=== PATIENT | male | born 1980 | race Caucasian/White ===

== ENCOUNTER → 2021-08-15 08:14 | Outpatient (CLI) | payer BC, SELFPAY ==
--- NOTE | ~2021-08-15 | CT_ITS ---
EXAMINATION: CT diagnostic chest wo con DATE: 08/15/2021 08:39 INDICATION: Shortness of breath, disorders of the diaphragm, aortic arch syndrome TECHNIQUE: Computed tomography (CT) of the chest was performed without intravenous contrast. The dose -length product (DLP) was 330.42 mGy-cm. Automated exposure control and iterative reconstruction tech [employer] were employed. COMPARISON: None FINDINGS: The lungs are free of acute opacities. A few scattered pulmonary nodules measure up to 4 mm in the left lower lobe. There is a right-sided aortic arch. No pathologically enlarged thoracic lymp h nodes are identified. The heart size is normal. There is no dilatation of the thoracic aorta. No pl eural effusion or pneumothorax is identified. An azygos fissure is noted. There is mild thoracic spon dylosis. The diaphragm appears intact. IMPRESSION: 1. No CT correlate for the patient's symptoms. 2. Right-sided aortic arch. 3. Scattered pulmonary nodules measuring up to 4 mm, likely old granulomatous disease. Given history of tobacco use, consider follow-up CT in 12 months. Reviewed, dictated and finalized at location [facility]. IMPRESSION: 1. No CT correlate for the patient's symptoms. 2. Right-sided aortic arch. 3. Scattered pulmonary nodules measuring up to 4 mm, likely old granulomatous d isease. Given history of tobacco use, consider follow-up CT in 12 months.
== END ==
DX: J98.6 Disorders of diaphragm (principal); R06.00 Dyspnea, unspecified; M31.4 Aortic arch syndrome [Takayasu]; R91.8 Other nonspecific abnormal finding of lung field
CPT/HCPCS: 71250

== ENCOUNTER 2022-07-15 13:52 | Emergency (ER) | payer BC, SELFPAY ==
--- NOTE | ~2022-07-15 | XR_ITS ---
XR chest 1V DATE: 07/15/2022 15:51 INDICATION: Syncopal episode. Fall. TECHNIQUE: PA and lateral views COMPARISON: 08/15/2021 CT chest FINDINGS: Right-sided aortic arch. Azygos lobe. Normal heart size. No hilar or mediastinal enlargemen t. No pulmonary infiltrate or consolidation, pleural effusion or pulmonary vascular congestion or pneumo thorax. Included skeletal structures are unremarkable. IMPRESSION: Right-sided aortic arch Azygos lobe No active cardiopulmonary disease Reviewed, dictated and finalized at location A.
--- NOTE | ~2022-07-15 | CT_ITS ---
EXAMINATION: CT brain wo con DATE: 07/15/2022 15:49 INDICATION: Syncopal episode. Small bump on posterior aspect of head. Neck tenderness. TECHNIQUE: Computed tomography (CT) of the head was performed without intravenous contrast. The mA wa s adjusted according to patient size. Iterative reconstruction technique was employed. Exam dose: 60 5.33 mGy-cm total exam DLP. COMPARISON: None FINDINGS: No intracranial mass lesion or hemorrhage or cerebrovascular accident. No midline shift or mass effect effect. Normal ventricular size. Normal johnson-white matter differentiation. No subdural or epidural hematoma is detected. Paranasal sinuses and mastoid air cells and included in the examination are normally developed and ae rated. No fracture or bone destruction of the cranial vault. IMPRESSION: Negative Reviewed, dictated and finalized at [facility]. Reviewed, dictated and finalized at location A. IMPRESSION: Negative
--- NOTE | ~2022-07-15 | CT_ITS ---
EXAMINATION: CT cervical spine wo con DATE: 07/15/2022 15:49 INDICATION: Syncopal episode. Fall today. Neck tenderness. TECHNIQUE: Computed tomography (CT) of the cervical spine was performed without intravenous contrast. Automated exposure control and iterative reconstruction technique were employed. Exam dose: 397.52 mGy-cm total exam DLP. COMPARISON: None FINDINGS: There is straightening of the cervical spine which may be due to muscle spasm. C1 and C2 are normally aligned and the odontoid process is intact. No fracture or dislocation or lock ed facet or prevertebral soft tissue swelling. No fracture or dislocation or locked facet or prevertebral soft tissue swelling. There is mild anterior spurring at C3-4 and C5-6. There is uncovertebral joint spurring on the left a t C5-6 and bilaterally at C6-7.. IMPRESSION: Straightening and is in the spine; no fracture or dislocation Mild cervical spondylosis Reviewed, dictated and finalized at [facility]. Reviewed, dictated and finalized at location A.
[2022-07-15 13:53] VITALS: BP 135/95; PULSE 81; RESP 16; TEMP 36.4; O2SAT 100
--- NOTE | 2022-07-15 14:02 | ECG_ITS ---
Measurements Intervals [place] Rate: 79 P: 65 RI: 168 QRS: 51 QRSD: 101 T: 31 QT: 336 QTc: 386 Interpretive Statements SINUS RHYTHM INCOMPLETE RIGHT BUNDLE BRANCH BLOCK BORDERLINE ECG NO PREVIOUS ECG AVAILABLE FOR COMPARISON Electronically Signed On 07-15-2022 15:58:05 CDT by Corby Yun D.O.
[2022-07-15 14:16] LABS: Basophils Absolute Auto 0.1 K/mm3 (0.0-0.1); Basophils Percent Auto 0.4 % (0.2-1.2); Eosinophils Absolute Auto 0.2 K/mm3 (0-0.3); Eosinophils Percent Auto 1.4 % (0-4.4); Hematocrit 43.9 % (42.0-52.0); Hemoglobin 14.2 g/dL (14.0-18.0); Immature Granulocyte Absolute 0.05 K/mm3 (0.00-0.031); Immature Granulocyte Percent A 0.4 % (0-0.5); Lymphocytes Absolute Auto 1.66 K/mm3 (0.9-3.2); Lymphocytes Percent Auto 12.1 % (18.3-44.2); Mean Corpuscular HGB Conc 32.3 g/dl (32-36); Mean Corpuscular Hemoglobin 28.7 pg (26-34); Mean Corpuscular Volume 88.9 fl (80-100); Mean Platelet Volume 8.8 fl (7.4-10.4); Monocytes Absolute Auto 0.8 K/mm3 (0.1-0.6); Monocytes Percent Auto 5.6 % (2.6-8.5); Neutrophils Percent Auto 80.1 % (45.5-73.1); Platelet Count Result 327 k/mm3 (150-375); Red Blood Count 4.94 M/mm3 (4.6-6.20); Red Cell Distribution Width 12.8 % (11.5-14.5); White Blood Count 13.7 K/mm3 (4.5-10.0)
[2022-07-15 14:25] LABS: Alanine Aminotransferase 24 U/L (6-50); Albumin Level 4.5 g/dL (3.5-5.1); Alkaline Phosphatase 51 U/L (38-126); Anion Gap 8 mmol/L (8-16); Aspartate Amino Transferase 27 U/L (17-59); Bilirubin,Total 0.7 mg/dL (0.2-1.3); Blood Urea Nitrogen 18 mg/dL (9-20); Calcium 8.8 mg/dL (8.4-10.2); Carbon Dioxide 27 mmol/L (22-30); Chloride 104 mmol/L (98-107); Estimated CRCL calculation 87 ml/min; Estimated Glomerular Filt Rate > 60; Glucose 76 mg/dL (65-110); Sodium 139 mmol/L (137-145)
[2022-07-15 16:03] VITALS: PULSE 72; RESP 17; O2SAT 92
[2022-07-15 16:04] VITALS: BP 133/93; PULSE 60; RESP 14; O2SAT 99
[2022-07-15 16:12] VITALS: O2SAT 100
--- NOTE | 2022-07-15 16:49 | ED.SYNCOPE ---
HPI - Syncope General Chief Complaint: Syncope Stated Complaint: syncopal event, struck head Time Seen by Provider: 07/15/22 16:15 History of Present Illness HPI narrative: This is a 41-year-old male with no known significant past medical history, recently seen by a carriage rider for family history of coronary artery disease, who presents to the emergency department after falling. The patient states he has been on his feet throughout the day, looked up and fell backwards to the ground, striking his head. He denies loss of consciousness. He denies chest pain, palpitations, shortness of breath or lightheadedness prior to or after the fall. He states he was able to walk afterwards without difficulty Related Data Allergies Allergy/AdvReac Type Severity Reaction Status Date / Time No Known Allergies Allergy Mild Verified 07/15/22 14:00 Review of Systems Review of Systems: CONSTITUTIONAL: Denies fever, chills, or sweats. CARDIOVASCULAR: Denies chest pain, palpitations, or edema. RESPIRATORY: Denies cough or dyspnea. GASTROINTESTINAL: Denies abdominal pain, nausea, vomiting, or diarrhea. GENITOURINARY: Denies dysuria or hematuria. SKIN: Denies rash or itching. MUSCULOSKELETAL: Denies back pain, joint pain, or myalgia. NEUROLOGIC: Denies headache, numbness, dizziness, or weakness. PSYCHIATRIC: Denies anxiety or depression. [facility] Social History Social History (Updated 07/15/22 @ 16:50 by Tom Knight MD) Smoking status: Never smoker Alcohol intake: current Substance use: never Exam Narrative: GENERAL: Well-appearing, well-nourished, and in no acute distress. HEAD: Normocephalic, atraumatic. EYES: PERRLA and EOMI. ENT: Nares clear, no rhinorrhea or epistaxis. Mucous membranes moist. Oropharynx without tonsillar hypertrophy exudate or other lesions. NECK: Supple. No adenopathy or masses. No carotid bruits or JVD. No midline spine tenderness to palpation, no step-off or crepitus CHEST: Clear to auscultation. No respiratory distress. No wheezes rales or rhonchi HEART: Regular rate and rhythm. No murmur heard. Normal peripheral pulses. ABDOMEN: Soft, nontender, nondistended, normal active bowel sounds. BACK: No midline spine tenderness to palpation, no step-off or crepitus EXTREMITIES: Normal range of motion. No edema. SKIN: Warm, dry, no rash. NEURO: No focal deficits. Alert and oriented x3. Strength 5/5 in all extremities, sensation intact bilaterally, cranial nerves II through XII intact. No noted ataxia. PSYCH: Normal mood and affect. Course Course Emergency Course: 16:45 - Chemistries unremarkable. CBC demonstrates slightly elevated white blood cell count of 13.7. In the absence of infectious symptoms I suspect this is a stress reaction. CT head negative for skull fracture or intracranial hemorrhage. CT cervical spine negative for fracture or dislocation. The patient c-collar was cleared by me. Chest x-ray not concerning for acute cardiopulmonary process. EKG demonstrates an incomplete right bundle branch block without other concerning changes for arrhythmia. Orthostatic vital signs negative. The patient was evaluated by a carriage rider in the past year due to family history of coronary artery disease without acute symptoms. He states he was cleared by his carriage rider. Based on the patient's history and exam, I do not suspect syncope. It is unclear what caused the patient's fall, however his work-up is not concerning for high risk process. I will discharge him with primary care and cardiology follow-up. Discussed return and emergent precautions including signs/symptoms of intracranial hemorrhage, arrhythmia, ACS and respiratory distress. The patient voiced understanding and is comfortable with the plan. All questions answered to his satisfaction. Vital Signs Vital signs: Vital Signs Temperature 97.5 F L 07/15/22 13:53 Pulse Rate 81 07/15/22 13:53 Respiratory Rate 16 07/15/22 13:53 Blood Pressu
[2022-07-15 16:50] VITALS: BP 134/86; BP 134/97; PULSE 65; PULSE 66
[2022-07-15 16:52] VITALS: BP 123/92; PULSE 79
== END 2022-07-15 17:09 | disposition home or self-care (01) ==
PROVIDERS: Emergency Provider Preventive Medicine Aerospace Medicine
DX: S09.90XA Unspecified injury of head, initial encounter (principal); I45.10 Unspecified right bundle-branch block; M47.812 Spondylosis without myelopathy or radiculopathy, cervical region; W18.49XA Other slipping, tripping and stumbling without falling, initial encounter
CPT/HCPCS: 36415; 70450; 71045; 72125; 80053; 85025; 93005; 99284; L0140